=== PATIENT | male | born 1965 | race Caucasian/White ===

== ENCOUNTER 2020-07-04 10:45 | Outpatient (CLI) | payer MEDICARE | END 2020-07-04 23:59 | disposition home health service (06) | LOC: WOU 10:45 | PROVIDERS: ATTEND Surgery | DX: L89.324 Pressure ulcer of left buttock, stage 4 (principal); G82.20 Paraplegia, unspecified; E11.9 Type 2 diabetes mellitus without complications; Z79.4 Long term (current) use of insulin; Z99.3 Dependence on wheelchair | CPT/HCPCS: 11043; 97605-TC ==

== ENCOUNTER 2020-07-11 11:00 | Outpatient (CLI) | payer MEDICARE ==
[2020-07-11] MEDS ORDERED: LIDOCAINE SOLN 4% 50 ML BOTTLE ONE (11:22)
== END 2020-07-11 23:59 | disposition home or self-care (01) ==
LOC: WOU 11:00
PROVIDERS: ATTEND Surgery
DX: I16.9 Hypertensive crisis, unspecified (principal); L89.324 Pressure ulcer of left buttock, stage 4
CPT/HCPCS: G0463

== ENCOUNTER 2020-07-18 11:55 | Outpatient (CLI) | payer MEDICARE ==
[2020-07-18] MEDS ORDERED: LIDOCAINE SOLN 4% 50 ML BOTTLE ONE (12:22)
== END 2020-07-18 23:59 | disposition home health service (06) ==
LOC: MSC 11:55 → WOU 23:59
PROVIDERS: ATTEND Surgery
DX: L89.324 Pressure ulcer of left buttock, stage 4 (principal); I10 Essential (primary) hypertension; E11.9 Type 2 diabetes mellitus without complications; Z79.4 Long term (current) use of insulin; G82.20 Paraplegia, unspecified; Z99.3 Dependence on wheelchair
CPT/HCPCS: 11043; 97605-TC

== ENCOUNTER 2020-07-25 11:00 | Outpatient (CLI) | payer MEDICARE ==
[2020-07-25] MEDS ORDERED: LIDOCAINE SOLN 4% 50 ML BOTTLE ONE (11:38)
== END 2020-07-25 23:59 | disposition home health service (06) ==
LOC: WOU 11:00
PROVIDERS: ATTEND Surgery
DX: L89.324 Pressure ulcer of left buttock, stage 4 (principal); I10 Essential (primary) hypertension; G82.20 Paraplegia, unspecified; E11.9 Type 2 diabetes mellitus without complications; Z79.4 Long term (current) use of insulin
CPT/HCPCS: 11043; 97605-TC

== ENCOUNTER 2020-08-01 10:05 | Outpatient (CLI) | payer MEDICARE | END 2020-08-01 23:59 | disposition home health service (06) | LOC: WOU 10:05 | PROVIDERS: ATTEND Surgery | DX: L89.324 Pressure ulcer of left buttock, stage 4 (principal); G82.20 Paraplegia, unspecified; E11.9 Type 2 diabetes mellitus without complications; Z79.4 Long term (current) use of insulin; I10 Essential (primary) hypertension; Z99.3 Dependence on wheelchair | CPT/HCPCS: 11043; 87070; 87077; 87186; A6253 ==

== ENCOUNTER 2020-09-26 11:00 | Outpatient (CLI) | payer MEDICARE | END 2020-09-26 23:59 | disposition home health service (06) | LOC: WOU 11:00 | PROVIDERS: ATTEND Surgery | DX: Z48.817 Encounter for surgical aftercare following surgery on the skin and subcutaneous tissue (principal); Z99.3 Dependence on wheelchair; G82.20 Paraplegia, unspecified; E11.9 Type 2 diabetes mellitus without complications; Z79.4 Long term (current) use of insulin; I10 Essential (primary) hypertension | CPT/HCPCS: G0463 ==

== ENCOUNTER 2020-10-17 11:00 | Outpatient (CLI) | payer MEDICARE | END 2020-10-17 23:59 | disposition home health service (06) | LOC: WOU 11:00 | PROVIDERS: ATTEND Surgery | DX: Z48.817 Encounter for surgical aftercare following surgery on the skin and subcutaneous tissue (principal); I10 Essential (primary) hypertension; E11.9 Type 2 diabetes mellitus without complications; Z79.4 Long term (current) use of insulin; G82.20 Paraplegia, unspecified | CPT/HCPCS: G0463 ==

== ENCOUNTER 2021-07-01 08:10 | Outpatient (CLI) | payer MEDICARE ==
[2021-07-01] MEDS ORDERED: UREA 10% -AHA 4% CREAM 57 GM TUBE ONE (09:17)
== END 2021-07-01 23:59 | disposition home health service (06) ==
LOC: WOU 08:10
PROVIDERS: ATTEND Surgery
DX: L89.514 Pressure ulcer of right ankle, stage 4 (principal); E11.9 Type 2 diabetes mellitus without complications; Z79.4 Long term (current) use of insulin; Z79.84 Long term (current) use of oral hypoglycemic drugs; G82.20 Paraplegia, unspecified; I10 Essential (primary) hypertension; Z99.3 Dependence on wheelchair
CPT/HCPCS: 11043

== ENCOUNTER 2021-07-15 08:05 | Outpatient (CLI) | payer MEDICARE | END 2021-07-15 23:59 | disposition home health service (06) | LOC: WOU 08:05 | PROVIDERS: ATTEND Surgery | DX: L89.514 Pressure ulcer of right ankle, stage 4 (principal); G82.20 Paraplegia, unspecified; E11.9 Type 2 diabetes mellitus without complications; Z79.84 Long term (current) use of oral hypoglycemic drugs; I10 Essential (primary) hypertension; Z79.01 Long term (current) use of anticoagulants; Z99.3 Dependence on wheelchair | CPT/HCPCS: 11043; A6253 ==

== ENCOUNTER 2021-07-29 08:05 | Outpatient (CLI) | payer MEDICARE | END 2021-07-29 23:59 | disposition home health service (06) | LOC: WOU 08:05 | PROVIDERS: ATTEND Surgery | DX: L89.514 Pressure ulcer of right ankle, stage 4 (principal); E11.9 Type 2 diabetes mellitus without complications; Z79.84 Long term (current) use of oral hypoglycemic drugs; R60.0 Localized edema; Z79.01 Long term (current) use of anticoagulants; G82.20 Paraplegia, unspecified; Z99.3 Dependence on wheelchair | CPT/HCPCS: 11043; A6253 ==

== ENCOUNTER 2021-08-12 08:10 | Outpatient (CLI) | payer MEDICARE ==
[2021-08-12] MEDS ORDERED: UREA 10% -AHA 4% CREAM 57 GM TUBE ONE (08:36)
== END 2021-08-12 23:59 | disposition home health service (06) ==
LOC: WOU 08:10
PROVIDERS: ATTEND Surgery
DX: L89.514 Pressure ulcer of right ankle, stage 4 (principal); I82.4Z1 Acute embolism and thrombosis of unspecified deep veins of right distal lower extremity; G82.20 Paraplegia, unspecified; R60.0 Localized edema; E11.9 Type 2 diabetes mellitus without complications; Z79.84 Long term (current) use of oral hypoglycemic drugs; Z79.01 Long term (current) use of anticoagulants; Z99.3 Dependence on wheelchair; I10 Essential (primary) hypertension
CPT/HCPCS: 11043; A6253

== ENCOUNTER 2021-08-26 08:05 | Outpatient (CLI) | payer MEDICARE ==
[2021-08-26] MEDS ORDERED: UREA 10% -AHA 4% CREAM 57 GM TUBE ONE (08:25)
== END 2021-08-26 23:59 | disposition home health service (06) ==
LOC: WOU 08:05
PROVIDERS: ATTEND Surgery
DX: L89.514 Pressure ulcer of right ankle, stage 4 (principal); I82.4Y1 Acute embolism and thrombosis of unspecified deep veins of right proximal lower extremity; Z79.01 Long term (current) use of anticoagulants; E11.9 Type 2 diabetes mellitus without complications; Z79.84 Long term (current) use of oral hypoglycemic drugs; I10 Essential (primary) hypertension; G82.20 Paraplegia, unspecified
CPT/HCPCS: 11043; A6253

== ENCOUNTER 2021-09-16 08:00 | Outpatient (CLI) | payer MEDICARE | END 2021-09-16 23:59 | disposition home health service (06) | LOC: WOU 08:00 | PROVIDERS: ATTEND Surgery | DX: L89.514 Pressure ulcer of right ankle, stage 4 (principal); G82.20 Paraplegia, unspecified; E11.8 Type 2 diabetes mellitus with unspecified complications; Z79.84 Long term (current) use of oral hypoglycemic drugs; Z79.01 Long term (current) use of anticoagulants; Z99.3 Dependence on wheelchair | CPT/HCPCS: 11043 ==

== ENCOUNTER 2021-09-30 08:08 | Outpatient (CLI) | payer MEDICARE ==
[2021-09-30] MEDS ORDERED: UREA 10% -AHA 4% CREAM 57 GM TUBE ONE (09:13)
== END 2021-09-30 23:59 | disposition home health service (06) ==
LOC: WOU 08:08
PROVIDERS: ATTEND Surgery
DX: L89.514 Pressure ulcer of right ankle, stage 4 (principal); E11.9 Type 2 diabetes mellitus without complications; Z99.3 Dependence on wheelchair; I10 Essential (primary) hypertension; Z79.01 Long term (current) use of anticoagulants; Z79.84 Long term (current) use of oral hypoglycemic drugs
CPT/HCPCS: 11043

== ENCOUNTER 2021-10-14 08:15 | Outpatient (CLI) | payer MEDICARE | END 2021-10-14 23:59 | disposition home health service (06) | LOC: WOU 08:15 | PROVIDERS: ATTEND Surgery | DX: L89.514 Pressure ulcer of right ankle, stage 4 (principal); E11.59 Type 2 diabetes mellitus with other circulatory complications; Z79.84 Long term (current) use of oral hypoglycemic drugs; G82.20 Paraplegia, unspecified; I10 Essential (primary) hypertension; Z99.3 Dependence on wheelchair; Z79.01 Long term (current) use of anticoagulants | CPT/HCPCS: 11043 ==

== ENCOUNTER 2021-11-04 08:15 | Outpatient (CLI) | payer MEDICARE | END 2021-11-04 23:59 | disposition home health service (06) | LOC: WOU 08:15 | PROVIDERS: ATTEND Surgery | DX: L89.514 Pressure ulcer of right ankle, stage 4 (principal); G82.20 Paraplegia, unspecified; E11.9 Type 2 diabetes mellitus without complications; Z79.84 Long term (current) use of oral hypoglycemic drugs; I82.4Y1 Acute embolism and thrombosis of unspecified deep veins of right proximal lower extremity; Z79.01 Long term (current) use of anticoagulants; R60.0 Localized edema; Z99.3 Dependence on wheelchair | CPT/HCPCS: 11043; 82962-TC ==

== ENCOUNTER 2021-11-18 08:15 | Outpatient (CLI) | payer MEDICARE | END 2021-11-18 23:59 | disposition home health service (06) | LOC: WOU 08:15 | PROVIDERS: ATTEND Surgery | DX: L89.514 Pressure ulcer of right ankle, stage 4 (principal); G82.20 Paraplegia, unspecified; R60.0 Localized edema; E11.9 Type 2 diabetes mellitus without complications; Z99.3 Dependence on wheelchair; I10 Essential (primary) hypertension; Z79.84 Long term (current) use of oral hypoglycemic drugs; Z79.01 Long term (current) use of anticoagulants | CPT/HCPCS: 11043 ==

== ENCOUNTER 2022-02-17 08:11 | Outpatient (CLI) | payer MEDICARE | END 2022-02-17 23:59 | disposition home health service (06) | LOC: WOU 08:11 | PROVIDERS: ATTEND Surgery | DX: L89.514 Pressure ulcer of right ankle, stage 4 (principal); E11.59 Type 2 diabetes mellitus with other circulatory complications; Z79.84 Long term (current) use of oral hypoglycemic drugs; G82.20 Paraplegia, unspecified; I10 Essential (primary) hypertension; Z79.01 Long term (current) use of anticoagulants; Z99.3 Dependence on wheelchair | CPT/HCPCS: 11043; A6210 ==

== ENCOUNTER 2022-03-03 08:18 | Outpatient (CLI) | payer MEDICARE | END 2022-03-03 23:59 | disposition home health service (06) | LOC: WOU 08:18 | PROVIDERS: ATTEND Surgery | DX: L89.514 Pressure ulcer of right ankle, stage 4 (principal); E11.59 Type 2 diabetes mellitus with other circulatory complications; Z79.84 Long term (current) use of oral hypoglycemic drugs; G82.20 Paraplegia, unspecified; I10 Essential (primary) hypertension; Z79.01 Long term (current) use of anticoagulants; Z99.3 Dependence on wheelchair | CPT/HCPCS: 11043; A6210 ==

== ENCOUNTER 2022-03-17 08:15 | Outpatient (CLI) | payer MEDICARE | END 2022-03-17 23:59 | disposition home health service (06) | LOC: WOU 08:15 | PROVIDERS: ATTEND Surgery | DX: L89.514 Pressure ulcer of right ankle, stage 4 (principal); G82.20 Paraplegia, unspecified; R60.0 Localized edema; E11.9 Type 2 diabetes mellitus without complications; Z79.84 Long term (current) use of oral hypoglycemic drugs; I82.4Y1 Acute embolism and thrombosis of unspecified deep veins of right proximal lower extremity; Z79.01 Long term (current) use of anticoagulants; I10 Essential (primary) hypertension; E78.5 Hyperlipidemia, unspecified | CPT/HCPCS: 11044; A6210 ==

== ENCOUNTER 2022-03-31 08:08 | Outpatient (CLI) | payer MEDICARE | END 2022-03-31 23:59 | disposition home health service (06) | LOC: WOU 08:08 | PROVIDERS: ATTEND Surgery | DX: L89.514 Pressure ulcer of right ankle, stage 4 (principal); R60.0 Localized edema; G82.20 Paraplegia, unspecified; I10 Essential (primary) hypertension; E78.5 Hyperlipidemia, unspecified; E11.59 Type 2 diabetes mellitus with other circulatory complications; Z79.84 Long term (current) use of oral hypoglycemic drugs; Z79.01 Long term (current) use of anticoagulants; Z99.3 Dependence on wheelchair | CPT/HCPCS: 11044; A6210 ==

== ENCOUNTER 2022-04-14 08:06 | Outpatient (CLI) | payer MEDICARE | END 2022-04-14 23:59 | disposition home health service (06) | LOC: WOU 08:06 | PROVIDERS: ATTEND Surgery | DX: L89.514 Pressure ulcer of right ankle, stage 4 (principal); G82.20 Paraplegia, unspecified; E11.59 Type 2 diabetes mellitus with other circulatory complications; Z79.84 Long term (current) use of oral hypoglycemic drugs; Z79.01 Long term (current) use of anticoagulants; Z99.3 Dependence on wheelchair; I10 Essential (primary) hypertension; E78.5 Hyperlipidemia, unspecified | CPT/HCPCS: 11044 ==

== ENCOUNTER 2022-05-05 08:15 | Outpatient (CLI) | payer MEDICARE | END 2022-05-05 23:59 | disposition home health service (06) | LOC: WOU 08:15 | PROVIDERS: ATTEND Surgery | DX: L89.514 Pressure ulcer of right ankle, stage 4 (principal); E08.21 Diabetes mellitus due to underlying condition with diabetic nephropathy; G82.20 Paraplegia, unspecified; Z99.3 Dependence on wheelchair; I10 Essential (primary) hypertension; Z79.84 Long term (current) use of oral hypoglycemic drugs; Z79.01 Long term (current) use of anticoagulants | CPT/HCPCS: 15271; Q4133 ==

== ENCOUNTER 2022-05-19 08:21 | Outpatient (CLI) | payer MEDICARE | END 2022-05-19 23:59 | disposition home health service (06) | LOC: WOU 08:21 | PROVIDERS: ATTEND Podiatrist Foot & Ankle Surgery | DX: L89.514 Pressure ulcer of right ankle, stage 4 (principal); E08.21 Diabetes mellitus due to underlying condition with diabetic nephropathy; Z79.84 Long term (current) use of oral hypoglycemic drugs; Z79.01 Long term (current) use of anticoagulants; I10 Essential (primary) hypertension; E78.5 Hyperlipidemia, unspecified; Z99.3 Dependence on wheelchair | CPT/HCPCS: 15271; Q4158 ==

== ENCOUNTER 2022-06-09 09:27 | Outpatient (CLI) | payer MEDICARE | END 2022-06-09 23:59 | disposition home health service (06) | LOC: WOU 09:27 | PROVIDERS: ATTEND Surgery | DX: L89.514 Pressure ulcer of right ankle, stage 4 (principal); G82.20 Paraplegia, unspecified; Z99.3 Dependence on wheelchair; I10 Essential (primary) hypertension; E08.21 Diabetes mellitus due to underlying condition with diabetic nephropathy; Z79.84 Long term (current) use of oral hypoglycemic drugs; Z79.01 Long term (current) use of anticoagulants | CPT/HCPCS: 15271; Q4158 ==

== ENCOUNTER 2022-06-23 08:15 | Outpatient (CLI) | payer MEDICARE ==
[2022-06-23] MEDS ORDERED: UREA 10% -AHA 4% CREAM 57 GM TUBE ONE (09:14)
== END 2022-06-23 23:59 | disposition home health service (06) ==
LOC: WOU 08:15
PROVIDERS: ATTEND Surgery
DX: L89.514 Pressure ulcer of right ankle, stage 4 (principal); E11.59 Type 2 diabetes mellitus with other circulatory complications; Z79.84 Long term (current) use of oral hypoglycemic drugs; I10 Essential (primary) hypertension; G82.20 Paraplegia, unspecified; Z99.3 Dependence on wheelchair
CPT/HCPCS: 11043

== ENCOUNTER 2022-07-07 08:27 | Outpatient (CLI) | payer MEDICARE | END 2022-07-07 23:59 | disposition home health service (06) | LOC: WOU 08:27 | PROVIDERS: ATTEND Surgery | DX: L89.514 Pressure ulcer of right ankle, stage 4 (principal); R60.0 Localized edema; G82.20 Paraplegia, unspecified; E11.69 Type 2 diabetes mellitus with other specified complication; Z79.84 Long term (current) use of oral hypoglycemic drugs; Z99.3 Dependence on wheelchair | CPT/HCPCS: 11044 ==

== ENCOUNTER 2022-07-21 08:26 | Outpatient (CLI) | payer MEDICARE | END 2022-07-21 23:59 | disposition home health service (06) | LOC: WOU 08:26 | PROVIDERS: ATTEND Surgery | DX: L89.514 Pressure ulcer of right ankle, stage 4 (principal); E11.21 Type 2 diabetes mellitus with diabetic nephropathy; E11.59 Type 2 diabetes mellitus with other circulatory complications; Z79.84 Long term (current) use of oral hypoglycemic drugs; G82.20 Paraplegia, unspecified; Z99.3 Dependence on wheelchair; R60.0 Localized edema | CPT/HCPCS: 11044 ==

== ENCOUNTER 2022-08-04 14:57 | Outpatient (CLI) | payer MEDICARE | END 2022-08-04 23:59 | disposition home health service (06) | LOC: WOU 14:57 | PROVIDERS: ATTEND Surgery | DX: L89.514 Pressure ulcer of right ankle, stage 4 (principal); E11.21 Type 2 diabetes mellitus with diabetic nephropathy; E11.59 Type 2 diabetes mellitus with other circulatory complications; Z79.84 Long term (current) use of oral hypoglycemic drugs; G82.20 Paraplegia, unspecified; Z99.3 Dependence on wheelchair | CPT/HCPCS: 11044 ==

== ENCOUNTER 2022-09-04 10:43 | Outpatient (CLI) | payer MEDICARE | END 2022-09-04 23:59 | disposition home or self-care (01) | LOC: CT 10:43 | DX: N20.0 Calculus of kidney (principal); R59.0 Localized enlarged lymph nodes; R10.9 Unspecified abdominal pain ==

== ENCOUNTER 2022-09-10 09:07 | Outpatient (CLI) | payer MEDICARE ==
[2022-09-10 11:18] LABS: BILIRUBIN,URINE NEGATIVE (NEGATIVE); COLOR,URINE YELLOW (YELLOW); LEUKOCYTE ESTERASE ,URINE 1+ (NEGATIVE); NITRITE, URINE POSITIVE (NEGATIVE); PH,URINE 6.5 (5.0-8.0); PROTEIN,URINE 3+ mg/dl (NEGATIVE); UGLUCOSE NEGATIVE (NEGATIVE); UROBILINOGEN,URINE 0.2 EU/dL (0.2)
[2022-09-10 11:20] LABS: BASOPHILS % (AUTO) 0.5 % (0.0-2.0); EOSINOPHILS % (AUTO) 2.9 % (0.0-6.0); HEMATOCRIT 42 % (39-51); HEMOGLOBIN 13.7 g/dL (13.5-17.5); MEAN CORPUSCULAR HGB CONC 33 g/dl (31.0-36.0); MEAN CORPUSCULAR VOLUME 83 fL (80-96); MONOCYTES # (AUTO) 0.5 K/uL (0.1-1.30); MONOCYTES % (AUTO) 7.1 % (2.0-12.0); NEUTROPHILS # (AUTO) 5.2 K/uL (1.8-8.9); NEUTROPHILS % (AUTO) 74.5 % (43.0-81.0); PLATELET COUNT (AUTO) 199 K/uL (150-450); RED BLOOD CELL COUNT(AUTO) 5.05 MIL/uL (4.5-6.0)
[2022-09-10 11:21] LABS: BACTERIA,URINE Many /HPF (None Seen); SQUAMOUS EPITHELIAL CELL,UR Few /HPF (None Seen); WBC,URINE 51-80 /HPF (0-3)
[2022-09-10 11:31] LABS: URINE TOTAL PROTEIN 193.1 mg/dL (0-11.9)
[2022-09-10 11:53] LABS: THYROID STIMULATING HORMONE 1.82 uIU/mL (0.358-3.74)
[2022-09-10 11:54] LABS: C-REACTIVE PROTEIN 1.8 mg/dL (0.0-0.9)
[2022-09-10 12:08] LABS: ALBUMIN 3.2 g/dL (3.4-5.0); BILIRUBIN,TOTAL 0.5 mg/dL (0.2-1.0); CALCIUM, SERUM 9.2 mg/dL (8.5-10.1); CREATININE 1.6 mg/dL (0.6-1.3); MAGNESIUM 1.9 mg/dL (1.8-2.4); PHOSPHORUS 3.5 mg/dL (2.5-4.9); POTASSIUM 4.2 mmol/L (3.5-5.1); TOTAL PROTEIN, SERUM 7.6 g/dL (6.4-8.2)
[2022-09-11 12:06] LABS: COMPLEMENT C3, SERUM 157 mg/dL (82-167); COMPLEMENT C4, SERUM 42 mg/dL (12-38)
[2022-09-11 13:07] LABS: *SPE A/G RATIO 0.7 (0.7-1.7); *SPE ALPHA-1-GLOBULIN 0.3 g/dL (0.0-0.4); *SPE ALPHA-2-GLOBULIN 0.8 g/dL (0.4-1.0); *SPE BETA GLOBULIN 1.2 g/dL (0.7-1.3); *SPE M-SPIKE Not Observed g/dL (Not Observed)
[2022-09-11 17:06] LABS: *PEUR ALBUMIN 57.5 % (.); *PEUR ALPHA-1-GLOBULIN 5.4 % (.); *PEUR ALPHA-2-GLOBULIN 3.4 % (.); *PEUR BETA GLOBULIN 15.8 % (.); *PEUR GAMMA GLOBULIN 17.8 % (.)
== END 2022-09-10 23:59 | disposition home or self-care (01) ==
LOC: MSC 09:07
PROVIDERS: ATTEND Internal Medicine
DX: E11.22 Type 2 diabetes mellitus with diabetic chronic kidney disease (principal); I12.9 Hypertensive chronic kidney disease with stage 1 through stage 4 chronic kidney disease, or unspecified chronic kidney disease; N18.30 Chronic kidney disease, stage 3 unspecified; Z79.4 Long term (current) use of insulin; Z79.85 Long-term (current) use of injectable non-insulin antidiabetic drugs; R60.0 Localized edema; I82.401 Acute embolism and thrombosis of unspecified deep veins of right lower extremity; Z79.01 Long term (current) use of anticoagulants; E66.9 Obesity, unspecified; Z68.37 Body mass index [BMI] 37.0-37.9, adult; S24.102A Unspecified injury at T2-T6 level of thoracic spinal cord, initial encounter; G82.20 Paraplegia, unspecified; Z93.51 Cutaneous-vesicostomy status; N20.0 Calculus of kidney; Z79.899 Other long term (current) drug therapy
CPT/HCPCS: 85025; 87086; 83735; 83036; 84100; 85652; 81001; 36415; 82746; 84443; 82607; 80053; 83880; 86140; 86038; 86160; 82306; 82043; 82570; 84165; 84166; 84155; 84156 ×2; G0463

== ENCOUNTER 2022-09-15 09:07 | Outpatient (CLI) | payer MEDICARE | END 2022-09-15 23:59 | disposition home health service (06) | LOC: WOU 09:07 | PROVIDERS: ATTEND Surgery | DX: L89.514 Pressure ulcer of right ankle, stage 4 (principal); G82.20 Paraplegia, unspecified; E11.59 Type 2 diabetes mellitus with other circulatory complications; Z79.4 Long term (current) use of insulin; Z79.85 Long-term (current) use of injectable non-insulin antidiabetic drugs; Z79.84 Long term (current) use of oral hypoglycemic drugs; Z79.01 Long term (current) use of anticoagulants; Z99.3 Dependence on wheelchair | CPT/HCPCS: 11043; 76770-TC ==

== ENCOUNTER → 2022-09-15 | Outpatient (CLI) | payer MEDICARE | END | disposition home or self-care (01) | LOC: US 09:00 | PROVIDERS: ATTEND Internal Medicine | DX: N28.1 Cyst of kidney, acquired (principal); N18.9 Chronic kidney disease, unspecified | CPT/HCPCS: 76770-TC ==

== ENCOUNTER → 2022-09-16 | Outpatient (CLI) | payer MEDICARE | END | disposition home or self-care (01) | LOC: MSC 14:00 | PROVIDERS: ATTEND Internal Medicine | DX: E11.22 Type 2 diabetes mellitus with diabetic chronic kidney disease (principal); I12.9 Hypertensive chronic kidney disease with stage 1 through stage 4 chronic kidney disease, or unspecified chronic kidney disease; N18.30 Chronic kidney disease, stage 3 unspecified; R60.0 Localized edema; I82.401 Acute embolism and thrombosis of unspecified deep veins of right lower extremity; E66.9 Obesity, unspecified; S24.102D Unspecified injury at T2-T6 level of thoracic spinal cord, subsequent encounter; G82.20 Paraplegia, unspecified; N20.0 Calculus of kidney; L97.419 Non-pressure chronic ulcer of right heel and midfoot with unspecified severity ==

== ENCOUNTER 2022-09-29 08:21 | Outpatient (CLI) | payer MEDICARE | END 2022-09-29 23:59 | disposition home health service (06) | LOC: WOU 08:21 | PROVIDERS: ATTEND Surgery | DX: L89.514 Pressure ulcer of right ankle, stage 4 (principal); R60.0 Localized edema; E11.59 Type 2 diabetes mellitus with other circulatory complications; Z79.4 Long term (current) use of insulin; Z79.85 Long-term (current) use of injectable non-insulin antidiabetic drugs; Z79.84 Long term (current) use of oral hypoglycemic drugs; G82.20 Paraplegia, unspecified; Z99.3 Dependence on wheelchair; I10 Essential (primary) hypertension | CPT/HCPCS: 11043 ==

== ENCOUNTER 2022-10-13 08:34 | Outpatient (CLI) | payer MEDICARE ==
[2022-10-13] MEDS ORDERED: DAKINS HALF STRENGTH (0.25%) 480 ML BOTTLE ONE (08:57)
== END 2022-10-13 23:59 | disposition home health service (06) ==
LOC: WOU 08:34
PROVIDERS: ATTEND Surgery
DX: L89.514 Pressure ulcer of right ankle, stage 4 (principal); E11.59 Type 2 diabetes mellitus with other circulatory complications; Z79.4 Long term (current) use of insulin; Z79.85 Long-term (current) use of injectable non-insulin antidiabetic drugs; Z79.84 Long term (current) use of oral hypoglycemic drugs; Z79.01 Long term (current) use of anticoagulants
CPT/HCPCS: 11043; A6253

== ENCOUNTER 2022-11-03 08:21 | Outpatient (CLI) | payer MEDICARE | END 2022-11-03 23:59 | disposition home health service (06) | LOC: WOU 08:21 | PROVIDERS: ATTEND Surgery | DX: L89.514 Pressure ulcer of right ankle, stage 4 (principal); G82.20 Paraplegia, unspecified; Z99.3 Dependence on wheelchair; I10 Essential (primary) hypertension; E78.5 Hyperlipidemia, unspecified; E11.9 Type 2 diabetes mellitus without complications; Z79.4 Long term (current) use of insulin; Z79.84 Long term (current) use of oral hypoglycemic drugs; Z79.01 Long term (current) use of anticoagulants | CPT/HCPCS: 11043; A4649 ==

== ENCOUNTER 2022-12-15 09:34 | Outpatient (CLI) | payer MEDICARE ==
[2022-12-15 10:01] LABS: BASOPHILS % (AUTO) 0.5 % (0.0-2.0); EOSINOPHILS % (AUTO) 2.4 % (0.0-6.0); HEMATOCRIT 40 % (39-51); HEMOGLOBIN 13.2 g/dL (13.5-17.5); LYMPHOCYTES # (AUTO) 1.1 K/uL (0.8-4.8); LYMPHOCYTES % (AUTO) 12.6 % (20.0-44.0); MEAN CORPUSCULAR HGB CONC 33 g/dl (31.0-36.0); MEAN CORPUSCULAR VOLUME 82 fL (80-96); MONOCYTES # (AUTO) 0.5 K/uL (0.1-1.30); MONOCYTES % (AUTO) 5.9 % (2.0-12.0); NEUTROPHILS % (AUTO) 78.6 % (43.0-81.0); PLATELET COUNT (AUTO) 198 K/uL (150-450); RED BLOOD CELL COUNT(AUTO) 4.83 MIL/uL (4.5-6.0); WHITE BLOOD COUNT (AUTO) 8.9 K/uL (4.3-11.0)
[2022-12-15 10:11] LABS: BILIRUBIN,TOTAL 0.4 mg/dL (0.2-1.0); CREATININE 1.8 mg/dL (0.6-1.3); POTASSIUM 4.1 mmol/L (3.5-5.1); TOTAL PROTEIN, SERUM 7.7 g/dL (6.4-8.2)
[2022-12-15 10:32] LABS: PROSTATE SPECIFIC ANTIGEN SCR 2.01 ng/mL (0.00-4.00); THYROID STIMULATING HORMONE 0.348 uIU/mL (0.358-3.74)
== END 2022-12-15 23:59 | disposition home or self-care (01) ==
LOC: LAB 09:34
PROVIDERS: ATTEND Family Medicine
DX: Z00.00 Encounter for general adult medical examination without abnormal findings (principal); E78.2 Mixed hyperlipidemia; I10 Essential (primary) hypertension; E11.9 Type 2 diabetes mellitus without complications
CPT/HCPCS: 36415; 80053-TC; 80061-TC; 84153-TC; 84443-TC; 85025-TC

== ENCOUNTER 2023-01-14 14:00 | Outpatient (CLI) | payer MEDICARE | END 2023-01-14 23:59 | disposition home or self-care (01) | LOC: MSC 14:00 | PROVIDERS: ATTEND Internal Medicine | DX: E11.22 Type 2 diabetes mellitus with diabetic chronic kidney disease (principal); I12.9 Hypertensive chronic kidney disease with stage 1 through stage 4 chronic kidney disease, or unspecified chronic kidney disease; N18.30 Chronic kidney disease, stage 3 unspecified; R60.0 Localized edema; D64.9 Anemia, unspecified; I82.401 Acute embolism and thrombosis of unspecified deep veins of right lower extremity; E66.9 Obesity, unspecified; S24.102D Unspecified injury at T2-T6 level of thoracic spinal cord, subsequent encounter; G82.20 Paraplegia, unspecified; N20.0 Calculus of kidney; L97.419 Non-pressure chronic ulcer of right heel and midfoot with unspecified severity ==